=== PATIENT | male | born 1975 | race Caucasian/White ===

== ENCOUNTER 2020-03-28 12:41 | Emergency (ER) | payer OTHER ==
[~2020-03-28] VITALS: Ht 165.1 cm; Wt 104.3 kg
[~2020-03-28 12:41] MED LIST: ACEASPCAF; ALPR1 PO; AMOX500 PO; ATOM60 PO; CELE200 PO; CIPR500 PO; CYCL10 PO; DIVA500ER; DIVA500ER PO; DULO60 PO; ERYT.5TO RIGHTEYE; HYDACE10B PO; HYDACE25S PR; HYDACE5 PO; HYDACE5325 PO; IBUP800; IBUP800 PO; LACO50TA2 PO; LACT10SY PO; LEVE500 PO; Norco 5-325 Ta1 EACH PO; OXYACE5C PO; OXYACE5T PO; PANT40 PO; PROC5 PO; PROM25 PO; Percocet 5-3251 EACH PO; RXLORA1 PO; RXOXYACE PO; SERT100 PO; SERT50 PO; TYLENOL ARTHRITIS; ZONI100 PO
[2020-03-28] MEDS ORDERED: DIVA250ER (12:50)
[2020-03-28] MEDS ORDERED: Veetids 500500 MG PO (13:20)
== END 2020-03-28 14:15 | disposition home or self-care (01) ==
LOC: ER 12:41
DX: K04.7 Periapical abscess without sinus (principal); G40.909 Epilepsy, unspecified, not intractable, without status epilepticus; F32.9 Major depressive disorder, single episode, unspecified; Z87.891 Personal history of nicotine dependence; Z79.899 Other long term (current) drug therapy; Z88.5 Allergy status to narcotic agent
CPT/HCPCS: 99282

== ENCOUNTER → 2021-08-04 | Outpatient (CLI) | payer OTHER ==
[~2021-08-04] MED LIST changes: +DIVA250ER; +Veetids 500500 MG PO
[2021-08-04 16:09] LABS: Source, Urine Voided
[2021-08-04 17:13] LABS: Bacteria Rare /hpf; Red Blood Cells, Urine 0-2 /hpf (0-2); Squamous Epithelial Cells Rare /hpf (Few); White Blood Cells, Urine 0-2 /hpf (0-5)
== END ==
LOC: LAB SHORT 14:00
PROVIDERS: Family Medicine
DX: S33.5XXD Sprain of ligaments of lumbar spine, subsequent encounter (principal)
CPT/HCPCS: 81015

== ENCOUNTER → 2021-08-04 | Outpatient (CLI) | payer OTHER ==
[2021-08-04 18:03] LABS: BASOPHILS ABSOLUTE AUTO 0.04 K/mm3 (0.00-0.23); BASOPHILS PERCENT AUTO 1 % (0-2); EOSINOPHILS ABSOLUTE AUTO 0.16 K/mm3 (0.00-0.68); EOSINOPHILS PERCENT AUTO 2 % (0-6); Hematocrit 44.5 % (37.0-53.0); IMMATURE GRAN ABSOLUTE AUTO 0.02 K/mm3 (0.00-0.10); IMMATURE GRAN PERCENT AUTO 0 % (0-1); LYMPHOCYTES ABSOLUTE AUTO 2.27 K/mm3 (0.84-5.20); LYMPHOCYTES PERCENT AUTO 34 % (21-46); MONOCYTES ABSOLUTE AUTO 0.64 K/mm3 (0.16-1.47); MONOCYTES PERCENT AUTO 10 % (4-13); Mean Corpuscular HGB 30.1 pg (26.0-34.0); Mean Corpuscular HGB Conc 33.7 g/dL (31.5-36.5); Mean Corpuscular Volume 89 fL (80-100); Mean Platelet Volume 10.9 fL (9.1-12.4); NEUTROPHILS ABSOLUTE AUTO 3.47 K/mm3 (1.96-9.15); NEUTROPHILS PERCENT AUTO 53 % (41-73); Platelet Count 217 K/mm3 (150-400); RDW Coefficient Variation 13.1 % (11.7-14.2); RDW Standard Deviation 42.3 fL (35.1-46.3); Red Blood Cell Count 4.99 M/mm3 (4.30-5.90)
[2021-08-04 18:15] LABS: Valproic Acid 63.5 ug/mL (50.0-100.0)
[2021-08-04 18:16] LABS: Alanine Aminotransfer (ALT/SGP 80 U/L (12-78); Albumin/Globulin Ratio 1.1 (0.8-1.8); Alk Phos 107 U/L (50-136); Anion Gap 7 mmol/L (6-16); Aspartate Aminotrans (AST/SGOT 41 U/L (12-37); Bilirubin, Total 0.6 mg/dL (0.1-1.0); Blood Urea Nitrogen 14 mg/dL (8-24); Bun/Creatinine Ratio 17.1 (12.0-20.0); CO2, Blood 28 mmol/L (21-32); Calcium, Blood 9.3 mg/dL (8.5-10.1); Chloride, Blood 105 mmol/L (98-108); Creatinine, Blood 0.82 mg/dL (0.60-1.20); Globulin, Blood 3.6 g/dL (2.2-4.0); Glomerular Filtration Rate >60 (60-); Glucose, Blood 83 mg/dL (70-99); Potassium, Blood 4.2 mmol/L (3.5-5.5); Sodium, Blood 140 mmol/L (136-145); Total Protein, Blood 7.6 g/dL (6.4-8.2)
== END ==
LOC: LAB SHORT 16:24
PROVIDERS: Family Medicine
DX: G40.309 Generalized idiopathic epilepsy and epileptic syndromes, not intractable, without status epilepticus (principal)
CPT/HCPCS: 80053; 80164; 80177; 85025

== ENCOUNTER → 2021-08-06 | Outpatient (CLI) | payer OTHER | LOC: LAB SHORT 13:16 | DX: S33.5XXD Sprain of ligaments of lumbar spine, subsequent encounter (principal) | CPT/HCPCS: 87086 ==

== ENCOUNTER → 2022-05-25 | Outpatient (CLI) | payer OTHER ==
[~2022-05-25] MED LIST changes: +DEPAKOTE ER500 M2 PO; +ROWEEPRA XR500 MG PO
[2022-05-25 13:55] LABS: BASOPHILS ABSOLUTE AUTO 0.06 K/mm3 (0.00-0.23); BASOPHILS PERCENT AUTO 1 % (0-2); EOSINOPHILS PERCENT AUTO 4 % (0-6); Hemoglobin 14.1 g/dL (13.5-17.5); IMMATURE GRAN ABSOLUTE AUTO 0.01 K/mm3 (0.00-0.10); IMMATURE GRAN PERCENT AUTO 0 % (0-1); LYMPHOCYTES ABSOLUTE AUTO 2.38 K/mm3 (0.84-5.20); LYMPHOCYTES PERCENT AUTO 46 % (21-46); MONOCYTES ABSOLUTE AUTO 0.46 K/mm3 (0.16-1.47); MONOCYTES PERCENT AUTO 9 % (4-13); Mean Corpuscular HGB 30.7 pg (26.0-34.0); Mean Corpuscular HGB Conc 35.3 g/dL (31.5-36.5); Mean Corpuscular Volume 87 fL (80-100); Mean Platelet Volume 10.7 fL (9.1-12.4); NEUTROPHILS ABSOLUTE AUTO 2.07 K/mm3 (1.96-9.15); NEUTROPHILS PERCENT AUTO 40 % (41-73); Platelet Count 218 K/mm3 (150-400); RDW Coefficient Variation 12.5 % (11.7-14.2); RDW Standard Deviation 39.7 fL (35.1-46.3); White Blood Cell Count 5.18 K/mm3 (4.00-11.30)
[2022-05-25 18:05] LABS: Alanine Aminotransfer (ALT/SGP 37 U/L (12-78); Albumin, Blood 3.8 g/dL (3.4-5.0); Albumin/Globulin Ratio 1.1 (0.8-1.8); Alk Phos 57 U/L (50-136); Anion Gap 4 mmol/L (6-16); Aspartate Aminotrans (AST/SGOT 15 U/L (12-37); Bilirubin, Total 0.5 mg/dL (0.1-1.0); Blood Urea Nitrogen 15 mg/dL (8-24); CHOL/HDL RATIO 4.8; CO2, Blood 28 mmol/L (21-32); Chloride, Blood 108 mmol/L (98-108); Cholesterol 184 mg/dL (50-200); Globulin, Blood 3.5 g/dL (2.2-4.0); Glucose, Blood 97 mg/dL (70-99); HDL Cholesterol 38 mg/dL (>39); LDL/HDL RATIO 3.1; Low Density Lipoprotein Chol 119 mg/dL (0-110); Potassium, Blood 4.7 mmol/L (3.5-5.5); Sodium, Blood 140 mmol/L (136-145); Total Protein, Blood 7.3 g/dL (6.4-8.2); Triglycerides 134 mg/dL (30-160); Very Low Density Lipoprot Chol 26 mg/dL (6-32)
[2022-05-25 18:11] LABS: Creatinine, Blood 0.79 mg/dL (0.60-1.20); Glomerular Filtration Rate 112 (60-)
[2022-05-26 21:06] LABS: FREE TESTOSTERONE(DIRECT) 13.9 pg/mL (6.8-21.5); TESTOSTERONE, SERUM 200 ng/dL (264-916)
== END | disposition home or self-care (01) ==
LOC: LAB SHORT 10:51
PROVIDERS: Family Medicine
DX: Z00.01 Encounter for general adult medical examination with abnormal findings (principal); Z13.6 Encounter for screening for cardiovascular disorders; R53.83 Other fatigue
CPT/HCPCS: 80053; 80061; 84402; 84403; 84443; 85025